=== PATIENT | female | born 1930 | race Caucasian/White ===

== ENCOUNTER 2017-01-07 06:50 | Day surgery (SDC) | payer MEDICARE, OTHER ==
[~2017-01-07] VITALS: Ht 165.1 cm; Wt 63.4 kg
[~2017-01-07 06:50] MED LIST: ATEN1TAB73 PO; CALC600T34 PO; DORZ1SOL2 OU; FOLITAB6 PO; FURO1TAB93 PO; KCL20 PO; MEST60TA PO; RALO1TAB13 PO; RANI1TAB5 PO; RHEU2.5T PO; RIVA15 PO; ST JTAB PO; SYNT25TA PO; TAB-TAB PO; VITA100017 PO; VITA400C28 PO
[2017-01-07 07:56] VITALS: BP 126/76; PULSE 68; RESP 18; TEMP 98; O2SAT 98
[2017-01-07] MEDS ORDERED: ASPIRIN EC 81 MG TABEC PO SCH (08:00)
[2017-01-07] MEDS ORDERED: NS 1000P @30 MLS/HR (KVO) IV SCH (08:00)
[2017-01-07] MEDS ORDERED: LEVO25TA4 PO (08:13)
[2017-01-07] MEDS ORDERED: POTA10PO PO (08:13)
[2017-01-07] MEDS ORDERED: FLEC1TAB8 PO (08:13)
[2017-01-07] MEDS ORDERED: MULTIVITAMIN PO (08:13)
[2017-01-07] MEDS ORDERED: MEST60TA PO (08:13)
[2017-01-07] MEDS ORDERED: FOLI400T PO (08:13)
[2017-01-07] MEDS ORDERED: DORZ2SOL7 EACH EYE (08:13)
[2017-01-07] MEDS ORDERED: FURO1TAB60 PO (08:13)
[2017-01-07] MEDS ORDERED: CALC1TAB87 PO (08:13)
[2017-01-07] MEDS ORDERED: RHEUMATREX PO (08:13)
[2017-01-07] MEDS ORDERED: VITATAB56 PO (08:14)
[2017-01-07] MEDS ORDERED: XARE15TA PO (08:14)
[2017-01-07 08:21] LABS: AUTOMATED NEUTROPHIL # 3.7 TH/MM3 (1.8-7.7); BASOPHIL # 0.1 TH/MM3 (0-0.2); BASOPHIL % 1.1 % (0.0-2.0); EOSINOPHIL # 0.4 TH/MM3 (0-0.4); EOSINOPHIL % 4.4 % (0.0-4.0); HEMO FLAGS DIFF FINAL; LYMPH % 42.9 % (9.0-44.0); LYMPHOCYTE # 3.4 TH/MM3 (1.0-4.8); MEAN CELL VOLUME 100.4 FL (80.0-100.0); MEAN CORPUSCULAR HEMOGLOBIN 32.6 PG (27.0-34.0); MEAN CORPUSCULAR HGB CONC 32.4 % (32.0-36.0); NEUT % 45.6 % (16.0-70.0); PLATELET COUNT 253 TH/MM3 (150-450); RED BLOOD COUNT 3.78 MIL/MM3 (4.00-5.30)
[2017-01-07 08:29] LABS: APTT (PATIENT) 23.7 SEC (24.3-30.1); INTERNATIONAL NORMALIZED RATIO 0.9 RATIO; PROTHROMBIN TIME - PATIENT 10.2 SEC (9.8-11.6)
[2017-01-07] MEDS ORDERED: HEPARIN-NS/PF INJ 500 ML ONE (08:32)
[2017-01-07 08:43] LABS: BICARBONATE 26.4 MEQ/L (21.0-32.0); POTASSIUM 4.1 MEQ/L (3.5-5.1)
[2017-01-07] MEDS ORDERED: IOHEXOL 350 MG/ML 50 ML BTL (for Cath Lab) OTHER ONE (08:58)
--- NOTE | 2017-01-07 09:28 | CATHPROC ---
[facility] HIS Report Study Information Study Number Admission Scheduled Start Study Start [id number] Jan 07 2017 6:50AM 01/07/2017 Jan 07 2017 8:17AM Story Service Cardiac Catheterization Admit Source Facility Department Other [facility] Physician and Clinical Staff Initial Jun Anguiano Road RepairerFely Marie,GWENDOLYN Road RepairerDeandra Vaughn,GWENDOLYN Recorder Sara Ortiz,POWER GENERATION TURBINE ROOM OPERATOR TECH2 Scrub Ankita Almaguer,RT(R) (BS) Procedures Performed Procedure Location (Site) Vessel Name Coronary Angiograms LCA Left Coronary Coronary Angiograms RCA Right Coronary LV Gram-hand inj. LV LV Ventricle Equipment Time Rpg Programmer Analyst Description Size Mfg Part Number Used/Scraped TRANSDUCER, TRUWAVE [id number] 08:24 LINTON BRAMBILA * Used W/STOCKCOCK *[id number] *[id number] *[id number] 08:24 MEDLINE IND[employer] PACK, CCL CUSTOM * Used *[id number] 08:24 charity: water PACER PEN, SKIN DUAL W/ RULER * Used *[id number] 08:24 InsideView WIRE, 3MMJ .035 180CM 180CM Used *[id number] 08:24 NAMIC MANIFOLD, 4 PORT * Used *[id number] 08:24 NYCOMED OMNIPAQUE, 350 MG, 150ML 150ML [id number] Used [id number] 08:24 PRABHAKAR MEDICAL BLANKET,WARM AIR CCL * Used *[id number] 08:24 TERUMO MEDICAL SHEATH, FR4 TERUMO (10CM) FR 4 Used *[id number] History: Current Medications Medication Dosage/Unit Route Frequency Last Date/Time Taken LASIX Synthroid XARELTO History: Allergies Allergy Reaction No Known Allergies History: Risk Factors Family History of Hypertension Dyslipidemia Previous ME Previous Heart Failure Premature CAD No Yes Yes No Yes Prior Valve Prior PCI Prior CABG Surgery No No No Cerebrovascular Peripheral Artery Chronic Lung On Dialysis Diabetes Disease Disease Disease No No No No No History: Symptoms/Diagnosis Selection Items Angina-unstable History: Stress Tests Stress or Imaging Studies Performed Yes Standard Exercise Stress Test No Stress Echo No Stress Test SPECT No Stress Test CMR Stress Test CMR Result Stress Test CMR Ischemia Risk/Extent Yes Positive Low Cardiac CTA Coronary Calcium Score No No History: Arrhythmias Selection Items Atrial fibrillation History: Other Current Smoker No Labs Hgb (g/dl) Hct (%) RBC (MIL/MM3) WBC (l/cumm) Platelets (thousands) 11.60-17.00 35.00-51.00 4.00-5.90 4.00-11.00 150.00-450.00 12.3 38 3.7 8 253 Glucose (mg/dl) BUN (mg/dl) Creatinine (mg/dl) BUN:Creatinine (1:x) 74.00-106.00 7.00-18.00 0.50-1.30 10.00-20.00 90 21 1.3 16.2 Na (meq/l) K (meq/l) Cl (meq/l) CO2 (mmol/L) Ca (mg/dl) 136.00-145.00 3.50-5.10 98.00-107.00 21.00-32.00 8.50-10.10 141 4.1 108 26.4 9.4 PT (sec) PTT (sec) INR (PTT:PT) 9.80-11.60 24.30-30.10 0.90-1.10 10.2 23.7 0.9 Medication Medication Total Dose (Bolus/Oral) Medication Total Dosage/Unit 1% XYLOCAINE 15 mL Medications (Bolus/Oral) Medication Time Given Dosage/Unit Administered By Reason 1% XYLOCAINE 01/07/2017 8:58:31 AM 15 mL Jun Murillo 15 mL 1% XYLOCAINE given in lab by Jun Murillo in Right Groin via Subcutaneous. Ordered by Jun Herron. Medication (Drip) Medication Time Given Dosage/Unit Concentration/Unit Diluent (ml) Solution IV Solutions 01/07/2017 8:29:31 AM 0 mL (IV) 500 NaCl .9 IV Solutions given in lab by Fely Rivera, RN in Right Antecubital via Peripheral IV. Pump/Drip Fl ow = 20 ml/hr using NaCl .9. Ordered by Jun Murillo. Initial Case Assessment Cardiovascular HR NIBP Chest Pain 65 135/75 2 Circulatory - Right Pulses Dorsalis Pedis Femoral 1 2 Scale (0,1,2,3,4,d) Circulatory - Left Pulses Dorsalis Pedis Femoral 1 2 Scale (0,1,2,3,4,d) Neurological State Oriented to time-place- Alert Moves all extremities person Respiration - General Respiration Rate SpO2 (%) (B/min) 12 99 Final Case Assessment Cardiovascular HR NIBP Chest Pain 60 122/77 2 Circulatory - Right Pulses Dorsalis Pedis Femoral 1 2 Scale (0,1,2,3,4,d) Circulatory - Left Pulses Dorsalis Pedis Femoral 1 2 Scale (0,1,2,3,4,d) Neurological State Oriented to time-place- Alert Moves all extremities person Respiration - General Respiration Rate SpO2 (%) (B/min) 13 95 Chronological Log Time Study Chronological Log 8:29:18 Patient arrived via Bed. 8:29:19 Patient Name, D.O.B, / Armband Verified By R.N. 8:29:20 Consent signed by the physician and the patient and verified by the [facility] staff. 8:29:20 Pre-op and post- op instructions given; patient acknowledges understanding of instructions. 8:29:21 Verbal Stimulation=2 Physical Stimulation=2 Airway=2 Respiration=2 TOTAL=8. (0=absent, 1=valdez ited, 2=present) 8:29:23 Presedation assessment performed by [facility] RN. 8:29:24 Patient has been NPO for More than 6Hrs. 8:29:26 NO Skin Breakdown- 8:29:27 Patient Warmer Placed on the Table. 8:29:29 Rashid Prominences Protected 8:29:30 A # 20 IV was noted in the Antecubital (left). Grade = 0 IV Solutions given in lab by Fely Rivera, RN in Right Antecubital via Peripheral IV. Pump/Dr ip Flow = 20 ml/hr 8:29:31 using NaCl .9. Ordered by Jun Murillo. 8:29:32 History and physical on the chart or being dictated. Vitals capture started with the following parameters, Patient=Adult, Interval=5 min, Initial Pre pfmba=139 mmHg, 8:34:37 Deflation Rate=5 mmHg, Cuff placed on Right Arm 8:35:15 HR=65 bpm, ZRGB=182/75 mmhg, SpO2=99.0 %, Resp=12 B/min, Pain=2, Oly=10, Moncada=2 8:36:35 Reference ECG taken Assessment: Initial Case, HR=65 BPM, AZXO=586/75 mmhg, Chest Pain=2 Right Pulses: Sancho Ped=1, Femoral=2 8:36:44 Left Pulses: Sancho Ped=1, Femoral=2 Neurological: State=Alert, Ox3, KWAN Respiration: Resp=12 B/min, SpO2=99 % 8:40:12 HR=67 bpm, SNUR=804/82 mmhg, QsY2=338.0 %, Resp=15 B/min, Pain=2, Oly=10, Moncada=2 8:40:26 Bilateral groins prepped with 2% chlorhexidine, and with a 3 min. waiting time. 8:45:09 HR=67 bpm, VUSM=181/94 mmhg, HgO8=678.0 %, Resp=12 B/min, Pain=2, Oly=10, Moncada=2 8:46:03 Pressure channel 1 zeroed. 8:50:59 HR=61 bpm, LYEI=368/66 mmhg, SpO2=99.0 %, Resp=16 B/min, Pain=2, Oly=10, Moncada=2 8:55:13 HR=57 bpm, ZNGQ=498/75 mmhg, VhS4=758.0 %, Resp=13 B/min, Pain=2, Oly=10, Moncada=2 Time Out. Correct patient, correct procedure,correct physician, power injector not loaded with c ontrast with surgical 8:58:09 team present. Time Out Concurred by MD, individual staff in procedure 8:58:10 Case Start 15 mL 1% XYLOCAINE given in lab by Jun Murillo in Right Groin via Subcutaneous. Ordered by Lidia, 8:58:31 Jun. 8:59:26 Access site was Right Femoral Artery. 8:59:33 A SHEATH, FR4 TERUMO (10CM) FR 4 was advanced into the Fem Art (right) using the Modified Se hampton technique. A JR 4.0 INFINITI CATHETER FR 4 was advanced over a wire. OMNIPAQUE, 350 MG, 150ML 150ML was use d for 9:00:00 injections. 9:00:12 HR=72 bpm, VPPV=390/79 mmhg, SpO2=99.0 %, Resp=10 B/min, Pain=2, Oly=10, Moncada=2 Recorded Pressure: LV, HR=61, Condition=Condition 1 9:00:49 (Left Ventricle) LV 139/4/10 9:00:56 The LV was manually injected with 10 cc's and visualized. OMNIPAQUE, 350 MG, 150ML 150ML use d. Recorded Pressure: LV, Ao, HR=60, Condition=Condition 1 9:01:19 (Left Ventricle) LV 126/5/7, (Aorta) Ao 134/57/88 9:01:48 The RCA was injected and visualized at various angles. OMNIPAQUE, 350 MG, 150ML 150ML used. 9:01:51 Catheter was removed A JL 4.0 INFINITI CATHETER FR 4 was advanced over a wire. OMNIPAQUE, 350 MG, 150ML 150ML was u sed for 9:01:52 injections. Recorded Pressure: Ao, HR=63, Condition=Condition 1 9:02:22 (Aorta) Ao 134/60/93 9:03:15 The LCA was injected and visualized at various angles. OMNIPAQUE, 350 MG, 150ML 150ML use d. 9:04:01 Catheter was removed 9:04:29 Case End 9:04:38 Catheter(s) removed without difficulty 9:05:13 HR=66 bpm, SFJT=218/82 mmhg, SpO2=99.0 %, Resp=12 B/min, Pain=2, Oly=10, Moncada=2 9:10:14 HR=57 bpm, DMHQ=598/71 mmhg, SpO2=98.0 %, Resp=21 B/min, Pain=2, Oly=10, Moncada=2 9:11:42 Sheath removed; pressure applied to access site. 9:15:18 HR=58 bpm, OAZM=424/65 mmhg, SpO2=99.0 %, Resp=13 B/min, Pain=2, Oly=10, Moncada=2 9:18:19 No case complications noted. :18:20 Cine recording checked. 9:18:24 Bedside Report will be given. :18:29 Contrast Scanned 9:20:15 HR=53 bpm, FOVE=587/70 mmhg, SpO2=97.0 %, Resp=11 B/min, Pain=2, Oly=10, Moncada=2 9:25:14 HR=60 bpm, KNIZ=008/77 mmhg, SpO2=95.0 %, Resp=13 B/min, Pain=2, Oly=10, Moncada=2 9:26:41 Sterile dressing applied to site Assessment: Final Case, HR=60 BPM, JHMV=700/77 mmhg, Chest Pain=2 Right Pulses: Sancho Ped=1, Femoral=2 9:26:48 Left Pulses: Sancho Ped=1, Femoral=2 Neurological: State=Alert, Ox3, KWAN Respiration: Resp=13 B/min, SpO2=95 % 9:26:57 Vitals capture stopped. 9:27:26 [facility] Study - Contrast Media Used In Study Contrast Total Opened (mL) Total Used (mL) Total Wasted (mL) Omnipaque 20 20 0 End Study - Maximum Contrast Load Max Contrast Load (mL) 243.9 End Study - Radiation Exposure Fluoro Time (minutes) 0.8 End Study - Patient Disposition Complications Transferred To Telemetry Bed
[2017-01-07] MEDS ORDERED: BACITRACIN OINT 0.9 GM PKT TOP ONE (09:45)
[2017-01-07] MEDS ORDERED: MISC INFORMATION XX ONE (09:45)
[2017-01-07] MEDS ORDERED: SODIUM CHLORIDE 0.9% FLUSH 10 ML FLUSH PRN (09:45)
[2017-01-07 09:54] LABS: INDIRECT BILIRUBIN 0.2 MG/DL (0.0-0.8); TOTAL BILIRUBIN ADULT 0.3 MG/DL (0.2-1.0)
[2017-01-07] MEDS ORDERED: SODIUM CHLORIDE 0.9% FLUSH 10 ML FLUSH SCH (21:00)
--- NOTE | 2017-01-08 12:30 | EKG ---
Date Performed: 01/07/2017 Time Performed: 08:01:36 PTAGE: 86 years EKG: Atrial fibrillation with slow ventricular response. Possible septal infarct - age undetermi alex Inferior T wave changes are nonspecific Low QRS voltages in limb leads Abnormal ECG PREVIOUS TRACING : 03/29/[address]-T wave abnormalities are markedly improved from the old tracing. DOCTOR: Kam Shaikh Interpretating Date/Time 01/08/2017 12:29:13
--- NOTE | 2017-01-09 21:59 | MR ---
cc: JUN AYALA M.D. DATE 01/07/17 PROCEDURE PERFORMED 1. Left heart catheterization. 2. Left ventriculography. 3. Coronary angiography. INDICATION New onset cardiac symptom of severe chest pain at rest, unstable angina. [place] Cardiovascular Society Class IV angina, dyspnea, coronary artery disease, history of a-fib. PROCEDURE The patient was brought to the Cardiac Catheterization Laboratory, prepped and draped in the usual sterile fashion. 10 cc of 1% lidocaine was used to locally anesthetize the right common femoral artery. A 4-Georgian JR-4, JL-4 catheters were used to perform left and right coronary angiography and left ventriculography. FINDINGS LV pressures 140/8-9. Ejection fraction 45-50%. Right coronary is nondominant. No significant disease angiographically. Left main coronary artery is a large vessel probably 6 or 7 mm in diameter with minimal luminal irregularities up to 5 to 10% angiographically. Left circumflex was a large dominant vessel, has a proximal 40-50% stenosis at a bifurcation with a medium-sized obtuse marginal vessel. This bifurcation is by an angle of approximately of 20-30 degrees. The first obtuse marginal vessel has mild diffuse disease in the ostial proximal segment up to 30% angiographically. Second obtuse marginal vessel is a small to medium size vessel, no significant disease angiographically and the left PDA has no significant disease angiographically. The LAD has mild diffuse disease in the proximal segment up to 20-30% angiographically. There is a very small diagonal vessel coming off the proximal segment which is probably a 1 mm vessel with an ostial 30-40% stenosis. Second diagonal artery is a small to medium size vessel with minimal luminal irregularities. Third diagonal artery is a small vessel, no significant disease angiographically. CONCLUSION 1. Angiographically mild to moderate two-vessel coronary artery disease in a left dominant system as detailed above. 2. Low normal to mildly reduced LV systolic function, ejection fraction 45-50%. 3. I have advised the patient to restart her Xarelto tonight at her previous dose. Will check fasting lipids, ___ CK and treat __ guidelines with statin if not contraindicated by lab work. Jun Ayala MD AWC/EO /9:13 AM /9:40 PM
== END 2017-01-07 13:19 | disposition home or self-care (01) ==
LOC: HDIC 06:50 → HDOC 06:50
PROVIDERS: ATTEND Internal Medicine Interventional Cardiology
DX: I25.110 Atherosclerotic heart disease of native coronary artery with unstable angina pectoris (principal); I48.91 Unspecified atrial fibrillation; Z79.01 Long term (current) use of anticoagulants
CPT/HCPCS: 80048; 80061; 80076; 85025; 85610; 85730; 93005; 93458; C1769; C1893; J1644; Q9967